=== PATIENT | female | born 1965 | race Caucasian/White ===

== ENCOUNTER 2018-09-01 00:42 | Emergency (ER) | payer SELFPAY ==
[2018-09-01 01:24] LABS: PTT 29.5 SEC (22.9-36.1); Prothrombin Time 12.8 SEC (12.0-14.7)
[2018-09-01 01:33] LABS: #Basophils 0.1 thou/uL (0.0-0.2); #Eosinphils 0.2 thou/uL (0.0-0.7); #Lymphocytes 2.8 thou/uL (1.20-3.40); #Monocytes 0.8 thou/uL (0.11-0.59); #Neutrophils 2.6 thou/uL (1.40-6.50); %Basophils 1.5 % (0.0-1.0); %Lymphocytes 43.7 % (21.0-51.0); %Monocytes 12.6 % (0.0-10.0); %Neutrophils 40.2 % (42.0-75.0); Hemoglobin 8.7 g/dL (12.0-16.0); Hypochromia MODERATE=16-30 cells (100X) (0-5/hpf); MDiff Complete? YES; Macrocytosis SLIGHT = 6-15 cells (100X) (0-5/hpf); Mean Corpuscular HGB CONC 30.3 g/dL (32.0-36.0); Mean Corpuscular Hemoglobin 21.5 pg (27.0-31.0); Mean Corpuscular Volume 70.9 fL (78.0-98.0); Mean Platelet Volume 4.8 fL (7.4-10.4); Microcytosis SLIGHT = 6-15 cells (100X) (0-5/hpf); Platelet Count 256 thou/uL (130-400); Platelet Morphology Comment Appears Adequate; RBC Distribution Width 21.1 % (11.5-14.5); RBC Morphology Abnormal; Red Blood Cell (RBC) Count 3.94 mill/uL (4.20-5.40); Target Cells MODERATE= 6-15 cells (100X) (0-1/hpf); White Blood Cell (WBC) Count 6.6 thou/uL (4.8-10.8)
[2018-09-01 01:35] LABS: ALT (SGPT) 37 U/L (8-55); AST (SGOT) 78 U/L (5-34); Albumin 3.9 g/dL (3.5-5.0); Alkaline Phosphatase 75 U/L (40-150); BUN (Urea Nitrogen) 4 mg/dL (9.8-20.1); Bilirubin, Total 0.4 mg/dL (0.2-1.2); Calc. Creatinine Clearance 0 mL/min (70-130); Calcium 8.1 mg/dL (7.8-10.44); Carbon Dioxide 21 mmol/L (22-29); Estimated GFR-MDRD Greater than 90; Globulin 3.1 g/dL (2.4-3.5); Glucose 90 mg/dL (70-105); Lipase 193 U/L (8-78)
[2018-09-01] MEDS ORDERED: cefTRIAXone\\ROCEPHIN 1 GM VIAL ONE ×2 (01:36→01:54)
[2018-09-01] MEDS ORDERED: Thiamine HCl 200 MG/2 ML VIAL ONE (01:36)
[2018-09-01] MEDS ORDERED: Multivit, Adult Inj 10 ML VIAL ONE (01:36)
[2018-09-01] MEDS ORDERED: Pantoprazole 40 MG VIAL ONE ×2 (01:36→03:42)
[2018-09-01] MEDS ORDERED: Dextrose 5 %-0.45 % NaCl 1,000 ML ONE (01:36)
[2018-09-01] MEDS ORDERED: Octreotide Acetate 100 MCG/ML VIAL ONE ×2 (01:36→03:42)
[2018-09-01 01:39] LABS: Chloride 100 mmol/L (98-107); Potassium 3.8 mmol/L (3.5-5.1); Sodium 134 mmol/L (136-145)
[2018-09-01 01:45] LABS: Anion Gap 17 mmol/L (10-20)
[2018-09-01] MEDS ORDERED: Sodium Chloride 0.9% 100 ML ONE (03:41)
--- NOTE | 2018-09-01 08:13 | RAD ---
RADIOGRAPH CHEST 1 VIEW: DATE: 09/01/2018 HISTORY: Chest pain FINDINGS: There are no airspace densities, pulmonary edema, pneumothorax, or cardiomegaly. The lateral costophr enic angles are sharp. IMPRESSION: No acute cardiopulmonary findings.
== END 2018-09-01 04:22 | disposition short-term general hospital (02) ==
LOC: MADERS 00:42
DX: K29.21 Alcoholic gastritis with bleeding (principal); F17.210 Nicotine dependence, cigarettes, uncomplicated; K27.9 Peptic ulcer, site unspecified, unspecified as acute or chronic, without hemorrhage or perforation
CPT/HCPCS: 36415; 71045; 80053; 82274; 83605; 83690; 84484; 85025; 85610; 85730; 86850; 86900; 86901; 93005; 96365; 96366; 96367; 96375; 96376; C9113; J0696; J2354; J3411; J3490; J7042